=== PATIENT | female | born 2005 | race Hispanic/Latino ===

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

== ENCOUNTER 2024-02-28 21:54 | Emergency (ER) | payer MEDICAID | END 2024-02-29 00:14 | disposition short-term general hospital (02) | LOC: ERS 21:54 | DX: O34.32 Maternal care for cervical incompetence, second trimester (principal); Z3A.22 22 weeks gestation of pregnancy ==